=== PATIENT | female | born 1960 | race Caucasian/White ===

== ENCOUNTER 2016-09-05 19:22 | Inpatient (IN) | payer OTHER ==
[~2016-09-05] VITALS: Ht 167.6 cm; Wt 94.6 kg
[~2016-09-05 19:22] MED LIST: ANTIVERT25 MG PO; BUSPAR30 MG PO; CALCIUM 500 MG1 EACH PO; CLARITIN,ALAVAR10 MG PO; LIPITOR40 MG PO; LOPRESSOR25 MG PO; MOTRIN600 MG PO; NICOTINE PATCH1 EAC1 TD; ROXICODONE5 MG PO; TOPAMAX100 MG PO; VALIUM2 MG PO; VENLAFAXINE HC100 MG PO; ZANTAC150 MG PO
[2016-09-05 19:41] LABS: BASE EXCESS -4.9 mEq/L (-3 to +3); BICARBONATE 25.7 mEq/L (22-26); CARBOXY HGB 10.7 % (0-5); COMMENTS - BLOOD GASES A+C+; DEVICE 980; FI02 60 %; MECHANICAL RATE 16 resp/min; METHEMOGLOBIN 0.9 % (0-1.5); MODE AC; PCO2 72 mm Hg (35-45); PEEP 5 CM/H20; PO2 113 mm Hg (80-100); SITE RR; TIDAL VOLUME 450 ML; TOTAL RESP RATE 16 resp/min; pH 7.16 (7.35-7.45)
[2016-09-05 19:42] LABS: HEMATOCRIT 52.2 % (36.0-46.0); MCH 28.6 PG (29.0-34.0); MCV 92.2 FL (83-99); MEAN PLAT.VOLUME 8.6 uM^3 (9.5-12.4); PLATELET COUNT 223 K/uL (156-360); RBC DIS.WIDTH-CV 12.8 % (11.8-14.6); RBC DIS.WIDTH-SD 43.2 % (39-53); RED BLOOD COUNT 5.66 M/uL (3.80-5.20); WHITE BLOOD COUNT 20.7 K/uL (4.1-10.2)
[2016-09-05 19:50] LABS: CHLORIDE 103 mEq/L (99-109); POTASSIUM 5.4 mEq/L (3.7-5.4); SODIUM 141 mEq/L (136-147)
[2016-09-05 19:52] LABS: GLUCOSE 400 mg/dL (70-99)
[2016-09-05 19:54] LABS: ANION GAP 16 MEQ/L (2-14)
[2016-09-05 19:55] LABS: SERUM ETHYL ALCOHOL < 10 mg/dL
[2016-09-05 19:56] LABS: GFR ESTIMATE (CALCULATED) 45 mL/min/
[2016-09-05 19:57] LABS: UREA NITROGEN (BUN) 10 mg/dL (9-23)
[2016-09-05 20:18] LABS: TROP-I INTERPRETATION NEGATIVE; TROPONIN-I 0.02 ng/mL (0.0-0.30)
[2016-09-05 20:21] LABS: ADD MIUA? YES; BILIRUBIN NEGATIVE; BLOOD MODERATE; COLOR STRAW ((YELLOW)); GLUCOSE (STRIP) >=500; KETONES NEGATIVE; LEUKOCYTES NEGATIVE; NITRITE NEGATIVE; PROTEIN (STRIP) 30; SPECIFIC GRAVITY 1.007 (1.000-1.030); UROBILINOGEN 0.2 MG/DL (0.2-1.0)
[2016-09-05 20:33] LABS: BACTERIA NONE SEEN /HPF; EPITHELIAL CELLS NONE SEEN /HPF; MUCUS NONE SEEN /LPF; RED BLOOD CELLS 0-5 /HPF (0-5); WHITE BLOOD CELLS 0-5 /HPF (0-5)
[2016-09-05 20:34] LABS: ADD MEDTOX COMMENT Y; AMPHETAMINE NEGATIVE (500 ng/mL); BARBITURATES PRESUMPTIVE POSITIVE (200 ng/mL); BENZODIAZEPINES NEGATIVE (150 ng/mL); COCAINE NEGATIVE (150 ng/mL); INTERNAL CONTROLS VALID? YES; METHADONE NEGATIVE (200 ng/mL); METHAMPHETAMINE NEGATIVE (500 ng/mL); OPIATES (MORPHINE) PRESUMPTIVE POSITIVE (100 ng/mL); OXYCODONE PRESUMPTIVE POSITIVE (100 ng/mL); PHENCYCLIDINE NEGATIVE (25 ng/mL); PROPOXYPHENE NEGATIVE (300 ng/mL); THC CANNABINOIDS NEGATIVE (50 ng/mL); TRICYCLIC ANTIDEPRESSANTS NEGATIVE (300 ng/mL)
[2016-09-05 22:44] VITALS: BP 137/91
[2016-09-05 22:55] VITALS: BP 137/91
[2016-09-05 23:00] VITALS: BP 141/90
[2016-09-05 23:15] VITALS: BP 143/86
[2016-09-05] MEDS ORDERED: BENADRYL50 MG PO (23:17)
[2016-09-05] MEDS ORDERED: PERPHENAZINE4 MG PO (23:18)
[2016-09-05] MEDS ORDERED: HYDROXYZINE HCL25 MG PO (23:19)
[2016-09-05] MEDS ORDERED: LAMOTRIGINE100 M1 PO ×2 (23:20→23:22)
[2016-09-05] MEDS ORDERED: FLEXERIL10 MG PO (23:20)
[2016-09-05] MEDS ORDERED: CARBAMAZEPINE200 MG PO (23:21)
[2016-09-05 23:30] VITALS: BP 148/88
[2016-09-05 23:53] LABS: BASE EXCESS 1.4 mEq/L (-3 to +3); BICARBONATE 29.2 mEq/L (22-26); CARBOXY HGB 5.7 % (0-5); COMMENTS - BLOOD GASES C+A+; DEVICE VENTILATOR; METHEMOGLOBIN 1.4 % (0-1.5); PCO2 58 mm Hg (35-45); PO2 98 mm Hg (80-100); SITE RR; pH 7.31 (7.35-7.45)
[2016-09-05 23:54] LABS: FI02 60 %; MECHANICAL RATE 20 resp/min; MODE AC; PEEP 5 CM/H20; TIDAL VOLUME 500 ML; TOTAL RESP RATE 20 resp/min
[2016-09-05 23:55] LABS: METH RESISTANT S AUREUS PCR NEGATIVE (NEGATIVE)
[2016-09-05 23:58] LABS: PROBE CHECK PASS; SPECIMEN PROCESSING CONTROL PASS
[2016-09-06] VITALS (23 sets, daily range): BP systolic 128–175; BP diastolic 79–98
[2016-09-06 01:09] LABS: INFLUENZA A VIRAL ANTIGEN NEGATIVE; INFLUENZA B VIRAL ANTIGEN NEGATIVE
[2016-09-06 05:57] LABS: EOSINOPHIL (%) 0.1 % (0-5); HEMATOCRIT 45.6 % (36.0-46.0); IMMATURE GRANULOCYTE (%) 0.5 % (0.0-0.7); IMMATURE GRANULOCYTE COUNT 0.1 K/uL; LYMPHOCYTE COUNT 1.8 K/uL (1.0-2.8); MCH 28.6 PG (29.0-34.0); MCHC 31.4 G/DL (30.0-36.0); MCV 91.2 FL (83-99); MEAN PLAT.VOLUME 9.1 uM^3 (9.5-12.4); MONOCYTE (%) 6.2 % (3-12); MONOCYTE COUNT 0.8 K/uL (0-0.8); NEUTROPHIL (%) 79.1 % (45-76); PLATELET COUNT 188 K/uL (156-360); RBC DIS.WIDTH-CV 13.2 % (11.8-14.6); RBC DIS.WIDTH-SD 43.8 % (39-53)
[2016-09-06 06:09] LABS: ANION GAP 10 MEQ/L (2-14); CHLORIDE 107 MEQ/L (99-109); SAMPLE HEMOLYSIS CHECK 0; SAMPLE ICTERIC CHECK 0; SAMPLE LIPEMIA CHECK 0; SODIUM 142 MEQ/L (136-147); UREA NITROGEN (BUN) 8 mg/dL (9-23); WHITE BLOOD COUNT 12.6 K/uL (4.1-10.2)
[2016-09-06 06:10] LABS: GFR ESTIMATE (CALCULATED) > 59 mL/min/; GLUCOSE 98 mg/dL (70-99); POTASSIUM 4.2 MEQ/L (3.7-5.4)
[2016-09-06 10:25] LABS: HBSG INDEX 0.28; HPCA INDEX 0.09
[2016-09-06 10:26] LABS: ANTI-HEPATITIS A VIRUS (IGM) Nonreactive; HAV INDEX 0.18
[2016-09-06 10:27] LABS: ANTI-HEPATITIS B CORE (IGM) Nonreactive
[2016-09-06] MEDS ORDERED: OPANA ER15 MG PO (12:00)
[2016-09-06] MEDS ORDERED: ROXICODONE15 MG PO (12:00)
[2016-09-06] MEDS ORDERED: MECLIZINE HCL25 MG PO (12:01)
[2016-09-06] MEDS ORDERED: CLONAZEPAM0.5 MG PO (12:01)
[2016-09-06] MEDS ORDERED: LIPITOR40 MG PO (12:02)
[2016-09-06] MEDS ORDERED: FIORICET,ESG1 TABLET PO (12:09)
[2016-09-06] MEDS ORDERED: TEGRETOL200 MG PO (12:29)
[2016-09-06] MEDS ORDERED: NEURONTIN600 MG PO (12:30)
[2016-09-06] MEDS ORDERED: LAMICTAL XR200 MG PO (12:30)
[2016-09-06] MEDS ORDERED: LATUDA60 MG PO (12:31)
[2016-09-06] MEDS ORDERED: BRINTELLIX5 MG PO (12:33)
[2016-09-06] MEDS ORDERED: GABAPENTIN800 MG PO (12:45)
[2016-09-06] MEDS ORDERED: FLEXERIL10 MG PO (12:46)
[2016-09-06] MEDS ORDERED: SPIRIVA RESPIMAT4 GM IH (12:58)
[2016-09-06] MEDS ORDERED: ADVAIR 250/501 DISK IH (12:58)
[2016-09-06] MEDS ORDERED: LIDOCAINE HCL35 GM TP (12:59)
[2016-09-06] MEDS ORDERED: GABAPENTIN600 MG PO (13:01)
[2016-09-07] VITALS (23 sets, daily range): BP systolic 119–162; BP diastolic 71–99
[2016-09-07 21:13] LABS: TOTAL CK 1283 IU/L (1-294)
[2016-09-07 21:26] LABS: CREATINE KINASE 1283 IU/L (1-294)
[2016-09-07 21:29] LABS: CK-MB 4.1 ng/mL (0.0-4.9)
[2016-09-08] VITALS: BP 135/85
[2016-09-08 04:00] VITALS: BP 117/73
[2016-09-08 05:50] LABS: CREATINE KINASE 872 IU/L (1-294); TOTAL CK 872 IU/L (1-294)
[2016-09-08 06:18] LABS: CK-MB 2.6 ng/mL (0.0-4.9)
[2016-09-08 06:30] LABS: EOSINOPHIL COUNT 0.2 K/uL (0-0.3); HEMATOCRIT 36.9 % (36.0-46.0); IMMATURE GRANULOCYTE (%) 0.2 % (0.0-0.7); INSTRUMENT ABS NEUTROPHIL CT 3.6 K/uL; LYMPHOCYTE COUNT 1.9 K/uL (1.0-2.8); MCH 28.1 PG (29.0-34.0); MCHC 31.2 G/DL (30.0-36.0); MCV 90.2 FL (83-99); MONOCYTE (%) 5.4 % (3-12); MONOCYTE COUNT 0.3 K/uL (0-0.8); NEUTROPHIL (%) 59.4 % (45-76); NEUTROPHIL COUNT 3.6 K/uL (1.8-6.4); PLATELET COUNT 133 K/uL (156-360); RBC DIS.WIDTH-CV 12.9 % (11.8-14.6); RBC DIS.WIDTH-SD 42.3 % (39-53); RED BLOOD COUNT 4.09 M/uL (3.80-5.20)
[2016-09-08 07:00] LABS: WHITE BLOOD COUNT 6.1 K/uL (4.1-10.2)
[2016-09-08 08:00] VITALS: BP 133/79
[2016-09-08 12:00] VITALS: BP 136/90
[2016-09-08] MEDS ORDERED: SPIRIVA RESPIMAT4 GM IH (15:24)
[2016-09-08] MEDS ORDERED: ADVAIR 250/501 DISK IH (15:25)
[2016-09-08] MEDS ORDERED: AUGMENTIN875 MG PO (15:25)
[2016-09-08] MEDS ORDERED: DUONEB 2.5-0.5 M3 ML AEROSOL (15:29)
[2016-09-08] MEDS ORDERED: PREDNISONE20 MG PO (15:31)
[2016-09-08 16:00] VITALS: BP 153/89
== END 2016-09-08 17:08 | disposition home or self-care (01) | DRG 917 ==
LOC: EME → EDBD 19:22 → EME 19:22 → EDOF 21:13 → 4WEST 21:13
PROVIDERS: Emergency Medicine; Internal Medicine; Surgery Surgical Critical Care
PROC: 5A1935Z Respiratory Ventilation, Less than 24 Consecutive Hours (ICD-10-PCS; principal; 2016-09-05)
DX: T42.3X2A Poisoning by barbiturates, intentional self-harm, initial encounter (principal); J96.00 Acute respiratory failure, unspecified whether with hypoxia or hypercapnia; J69.0 Pneumonitis due to inhalation of food and vomit; R40.20 Unspecified coma; F11.20 Opioid dependence, uncomplicated; E87.2 Acidosis; T40.1X2A Poisoning by heroin, intentional self-harm, initial encounter; F17.210 Nicotine dependence, cigarettes, uncomplicated; Z78.1 Physical restraint status; F31.9 Bipolar disorder, unspecified; Z91.19 Patient's noncompliance with other medical treatment and regimen; J43.9 Emphysema, unspecified; E66.3 Overweight; G89.29 Other chronic pain; G43.909 Migraine, unspecified, not intractable, without status migrainosus; E78.5 Hyperlipidemia, unspecified; Z68.34 Body mass index [BMI] 34.0-34.9, adult; Z83.6 Family history of other diseases of the respiratory system; Z82.49 Family history of ischemic heart disease and other diseases of the circulatory system
CPT/HCPCS: 36600; 71010; 80048; 80074; 80202; 81003; 82550; 82553; 82803; 83605; 84484; 84999; 85025; 87040; 87070; 87106; 87205; 87502; 87641; 93005; 94002; 94640; 94640 76; 94760; 94799; 99202; 99281; 99285; G0480; J1170; J1650; J2250; J2310; J2543; J2704; J3370; J7030; J7050; J7512

== ENCOUNTER 2016-11-15 09:16 | Emergency (ER) | payer OTHER ==
[~2016-11-15] VITALS: Ht 162.6 cm; Wt 88.2 kg
[~2016-11-15 09:16] MED LIST changes: +ADVAIR 250/501 DISK IH; +AUGMENTIN875 MG PO; +BENADRYL50 MG PO; +BRINTELLIX5 MG PO; +CARBAMAZEPINE200 MG PO; +CLONAZEPAM0.5 MG PO; +DUONEB 2.5-0.5 M3 ML AEROSOL; +FIORICET,ESG1 TABLET PO; +FLEXERIL10 MG PO; +GABAPENTIN600 MG PO; +GABAPENTIN800 MG PO; +HYDROXYZINE HCL25 MG PO; +LAMICTAL XR200 MG PO; +LAMOTRIGINE100 M1 PO; +LATUDA60 MG PO; +LIDOCAINE HCL35 GM TP; +MECLIZINE HCL25 MG PO; +NEURONTIN600 MG PO; +OPANA ER15 MG PO; +PERPHENAZINE4 MG PO; +PREDNISONE20 MG PO; +ROXICODONE15 MG PO; +SPIRIVA RESPIMAT4 GM IH; +TEGRETOL200 MG PO
[2016-11-15] MEDS ORDERED: FLEXERIL10 MG PO (09:44)
[2016-11-15] MEDS ORDERED: SPIRIVA RESPIMAT4 GM IH (09:44)
[2016-11-15] MEDS ORDERED: NAPROXEN500 MG PO (12:19)
[2016-11-15 12:31] VITALS: BP 146/79
== END 2016-11-15 12:31 | disposition home or self-care (01) ==
LOC: EME 09:16
DX: S16.1XXA Strain of muscle, fascia and tendon at neck level, initial encounter (principal); S39.012A Strain of muscle, fascia and tendon of lower back, initial encounter; V49.40XA Driver injured in collision with unspecified motor vehicles in traffic accident, initial encounter; F17.200 Nicotine dependence, unspecified, uncomplicated
CPT/HCPCS: 72040; 72070; 72100; 72125; 99281; 99283; J1885; J3010